=== PATIENT | female | born 1950 | race Native Hawaiian/Other Pacific Islander ===

== ENCOUNTER 2017-03-23 09:02 | Outpatient (CLI) | payer BC, OTHER | END 2017-03-23 11:00 | disposition home or self-care (01) | LOC: MAMMO 09:02 | DX: Z85.3 Personal history of malignant neoplasm of breast (principal) | CPT/HCPCS: G0206-TC ==

== ENCOUNTER 2018-05-12 12:48 | Outpatient (CLI) | payer OTHER | END 2018-05-12 23:31 | disposition home or self-care (01) | LOC: MAMMO 12:48 | DX: Z85.3 Personal history of malignant neoplasm of breast (principal); Z90.11 Acquired absence of right breast and nipple ==

== ENCOUNTER 2019-06-20 14:46 | Outpatient (CLI) | payer OTHER | END 2019-06-20 17:00 | disposition home or self-care (01) | LOC: MAMMO 14:46 | DX: Z12.31 Encounter for screening mammogram for malignant neoplasm of breast (principal); N64.59 Other signs and symptoms in breast ==

== ENCOUNTER 2021-10-07 15:04 | Outpatient (CLI) | payer OTHER | END 2021-10-07 19:23 | disposition home or self-care (01) | LOC: MAMMO 15:04 | PROVIDERS: ATTEND Specialist | DX: Z12.31 Encounter for screening mammogram for malignant neoplasm of breast (principal); N64.59 Other signs and symptoms in breast | CPT/HCPCS: G0279 ==

== ENCOUNTER 2022-06-16 14:19 | Outpatient (CLI) | payer OTHER | END 2022-06-16 19:36 | disposition home or self-care (01) | LOC: RAD 14:19 | PROVIDERS: ATTEND Internal Medicine | DX: Z13.820 Encounter for screening for osteoporosis (principal); N95.8 Other specified menopausal and perimenopausal disorders ==

== ENCOUNTER 2023-04-30 14:48 | Outpatient (CLI) | payer OTHER | END 2023-04-30 19:24 | disposition home or self-care (01) | LOC: MAMMO 14:48 → RAD 14:48 → MAMMO 15:00 | PROVIDERS: ATTEND Internal Medicine | DX: Z12.31 Encounter for screening mammogram for malignant neoplasm of breast (principal); M25.572 Pain in left ankle and joints of left foot; M79.672 Pain in left foot ==